=== PATIENT | female | born 1950 | race African-American/Black ===

== ENCOUNTER 2017-01-28 10:41 | Emergency (ER) | payer BC ==
[~2017-01-28] VITALS: Ht 167.6 cm; Wt 103.3 kg
[2017-01-28] MEDS ORDERED: KETOROLAC 30MG/ML VIAL IM ONE (11:00)
[2017-01-28 11:14] VITALS: BP 119/65
[2017-01-28] MEDS ORDERED: HYDROCODONE/ACETAMINOPHEN 5/325MG TABLET PO ONE (12:30)
== END 2017-01-28 13:45 | disposition left against medical advice (07) ==
LOC: ER 11:21
DX: M54.89 Other dorsalgia (principal); I10 Essential (primary) hypertension; F17.210 Nicotine dependence, cigarettes, uncomplicated; E07.9 Disorder of thyroid, unspecified; Z90.710 Acquired absence of both cervix and uterus; W01.190A Fall on same level from slipping, tripping and stumbling with subsequent striking against furniture, initial encounter; Y93.89 Activity, other specified; Y92.018 Other place in single-family (private) house as the place of occurrence of the external cause
CPT/HCPCS: 72070; 96372; 99284; J1885